=== PATIENT | male | born 1945 | race Caucasian/White ===

== ENCOUNTER 2019-12-24 08:46 | Emergency (ER) | payer OTHER ==
[2019-12-24 09:26] LABS: Absolute Lymphocytes (CBC) 2.1 K/uL (0.7-4.9); Basophils % 0.5 % (0-1.3); Hematocrit 46.4 % (39.6-49.0); Lymphocytes % 28.5 % (15.3-44.8); RBC Red Blood Cell Count 4.87 M/uL (4.33-5.43)
[2019-12-24 09:28] LABS: Protime INR 0.93
[2019-12-24 09:43] LABS: Albumin 3.4 g/dL (3.4-5.0); Bilirubin Total 0.5 mg/dL (0.2-1.0); Potassium 4.5 mmol/L (3.5-5.1); Protein, Total 6.9 g/dL (6.4-8.2)
[2019-12-24 10:15] LABS: Magnesium 1.8 mg/dL (1.8-2.4); Troponin (Emerg Dept Use Only) 0.03 ng/mL (0.0-0.045)
--- NOTE | 2019-12-24 10:15 | RAD REPORT ---
EXAM DESCRIPTION: Esperanza Single View12/24/2019 9:59 am CLINICAL HISTORY: Chest pain COMPARISON: none FINDINGS: The lungs appear clear of acute infiltrate. The heart is borderline enlarged IMPRESSION: No acute abnormalities displayed
[2019-12-24 10:59] VITALS: TEMP 98.9
[2019-12-24 11:01] VITALS: O2SAT 95
[2019-12-24 11:02] VITALS: BP 139/72
--- NOTE | 2019-12-25 07:09 | EKG ---
Test Date: 2019-12-24 Test Time: 09:48:30 Adult Family Home Program Manager: JULIETA MEASUREMENT RESULTS: Intervals: Rate: 66 MO: 222 QRSD: 90 QT: 392 QTc: 410 [place]: P: 30 MO: 222 QRS: 1 T: 32 INTERPRETIVE STATEMENTS: Sinus rhythm with 1st degree AV block with premature atrial complexes Inferior infarct, age undetermined Possible Anterior infarct, age undetermined Abnormal ECG Compared to ECG 08/07/1999 10:02:00 Atrial premature complex(es) now present First degree AV block now present Myocardial infarct finding now present Electronically Signed On 12-25-19 07:08:10 CDT by Filipe Grubbs
--- NOTE | 2019-12-31 12:05 | EDPHYS ---
Physician Documentation [facility] Name: Walt Alexis Age: 74 yrs Sex: Male : 1945 Arrival Date: 12/24/2019 Time: 08:50 Bed 5 Private MD: ED Physician Bharat Olea HPI: 12/23 09:10 This 74 yrs old Male presents to ER via Ambulatory with complaints of pm1 Bleeding Gums. 09:10 The patient presents with bleeding. The problem is located in the gums. Onset: The pm1 symptoms/episode began/occurred this morning. Duration: The symptoms now resolved. Modifying factors: The symptoms are alleviated by nothing, the symptoms are aggravated by brushing teeth. Associated signs and symptoms: Pertinent negatives: dysphagia, fever, inability to eat, vomiting. Severity of symptoms: in the emergency department the symptoms have resolved. The patient has not experienced similar symptoms in the past. The patient has not recently seen a physician, has an appointment scheduled, with museum preparator in a few days. Patient with bleeding from his gums after brushing teeth this AM. No other complaints or signs of bleeding. Historical: - Allergies: 09:09 Plavix; jl7 09:09 Sulfa (Sulfonamide Antibiotics); jl7 - Home Meds: 09:09 aspirin 81 mg Oral TbEC [Active]; carvedilol oral oral [Active]; Levemir 100 unit/mL jl7 subcutaneous soln [Active]; Metformin Oral [Active]; Novolog 100 unit/mL Sub-Q soln [Active]; rosuvastatin oral oral [Active]; Isosorbide Mononitrate Oral [Active]; - PMHx: 09:09 Hypertension; Hyperlipidemia; Diabetes - IDDM; jl7 - PSHx: 09:09 Heart stents; jl7 - Immunization history:: Adult Immunizations up to date. - Social history:: Smoking status: Patient denies any tobacco usage or history of. ROS: 09:10 Constitutional: Negative for fever, chills, and weight loss. pm1 09:10 Neck: Negative for injury, pain, and swelling, Cardiovascular: Negative for chest pain, palpitations, and edema, Respiratory: Negative for shortness of breath, cough, wheezing, and pleuritic chest pain, Abdomen/GI: Negative for abdominal pain, nausea, vomiting, diarrhea, and constipation, Back: Negative for injury and pain, MS/Extremity: Negative for injury and deformity, Skin: Negative for injury, rash, and discoloration, Neuro: Negative for headache, weakness, numbness, tingling, and seizure. 09:10 ENT: Positive for bleeding from gums, Negative for ear pain, Gum pain sinus pain, sore throat, dental pain, difficulty swallowing, difficulty handling secretions. Exam: 09:10 Constitutional: This is a well developed, well nourished patient who is awake, alert, pm1 and in no acute distress. Head/Face: Normocephalic, atraumatic. 09:10 Chest/axilla: Normal chest wall appearance and motion. Nontender with no deformity. No lesions are appreciated. 09:10 Abdomen/GI: Soft, non-tender. No guarding or rebound. No evidence of tenderness throughout. Back: No spinal tenderness. No costovertebral tenderness. Full range of motion. Skin: Warm, dry with normal turgor. Normal color with no rashes, no lesions, and no evidence of cellulitis. MS/ Extremity: Pulses equal, no cyanosis. Neurovascular intact. Full, normal range of motion. 09:10 ENT: External ear(s): are unremarkable, Ear canal(s): are normal, TM's: are normal, Nose: is normal, Mouth: is normal, Lips: no bleeding present, Oral mucosa: normal, Gums: normal with healthy appearance. 09:10 Cardiovascular: Exam negative for acute changes, Rate: normal, Rhythm: regular, Pulses: no pulse deficits are appreciated. 09:10 Respiratory: Exam negative for acute changes, respiratory distress, shortness of breath. 09:10 Neuro: Exam negative for acute changes, Orientation: is normal, Mentation: is normal, Motor: is normal, Sensation: is normal, no obvious gross deficits. Vital Signs: 09:04 BP 134 / 75; Pulse 72; Resp 16 S; Temp 98.9(O); Pulse Ox 97% on R/A; Pain 0/10; jl7 09:59 BP 142 / 70; Pulse 67; Resp 16 S; Pulse Ox 95% on R/A; ca1 10:43 BP 139 / 72; Pulse 67; Resp 16 S; Pulse Ox 95% on R/A; ca1 MDM: 08:54 Patient medically screened. 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 I pm1 evaluated the patient and he reported twitching chest pain that feels like his tens unit on sternum. Lasted for 1 sec. Patient with history of two AR and 1 stent. Due to medical history and chest pain complaint I will add cardiac evaluation. 10:20 Refusal of service: The patient/guardian displays adequate decision making capability pm1 and despite a detailed discussion of alternatives, benefits, risks, and consequences refuses: Discussed labs with patient. Explained that I would like to get a repeat troponin, but patient would like to go home now his his main concern was his gum bleeding. 10:24 Data reviewed: vital signs. Data interpreted: Pulse oximetry: on room air is 95 %. pm1 Interpretation: normal. 10:24 Counseling: I had a detailed discussion with the patient and/or guardian regarding: the pm1 historical points, exam findings, and any diagnostic results supporting the discharge/admit diagnosis, lab results, radiology results, the need for outpatient follow up, to return to the emergency department if symptoms worsen or persist or if there are any questions or concerns that arise at home. 12/23 09:10 Order name: CBC with Diff; Complete Time: 09:40 pm1 12/23 09:10 Order name: CMP; Complete Time: 10:05 pm12/23 09:10 Order name: PT-INR; Complete Time: 09:41 pm12/23 09:42 Order name: Magnesium; Complete Time: 10:17 pm12/23 09:42 Order name: NT PRO-BNP; Complete Time: 10:17 pm12/23 09:42 Order name: Troponin (emerg Dept Use Only); Complete Time: 10:17 pm12/23 09:42 Order name: XRAY Chest (1 view); Complete Time: 10:17 pm12/23 09:42 Order name: EKG; Complete Time: 09:44 pm12/23 09:42 Order name: Cardiac monitoring; Complete Time: 09:52 pm12/23 09:42 Order name: EKG - Nurse/Tech; Complete Time: 09:52 pm12/23 09:42 Order name: Labs collected and sent; Complete Time: 09:56 pm12/23 09:42 Order name: O2 Per Protocol; Complete Time: 10:01 pm1 12/23 09:42 Order name: O2 Sat Monitoring; Complete Time: 10:01 pm1 Administered Medications: No medications were administered Disposition: 18:08 Co-signature as Attending Physician, Bharat Olea MD. rn Disposition: 12/24/19 10:26 Discharged to Home. Impression: Bleeding of gums. - Condition is Stable. - Discharge Instructions: Gingivitis. - Medication Reconciliation Form, Thank You Letter, Antibiotic Education, Prescription Opioid Use form. - Follow up: Emergency Department; When: As needed; Reason: Worsening of condition. Follow up: Private Physician; When: 2 - 3 days; Reason: Recheck today's complaints, Continuance of care, Re-evaluation by your physician. - Problem is new. - Symptoms have improved. Signatures: Dispatcher [employer] EDBharat Bob MD MD rn Marinas, Patrick, BACK WEDGER BACK WEDGER pm1 Concepción Sims RN RN jl7 Olive Henry RN RN ca1 Corrections: (The following items were deleted from the chart) 10:43 09:42 IV Saline Lock ordered. pm1 ca1 10:44 10:26 12/24/2019 10:26 Discharged to Home. Impression: Bleeding of gums. Condition is ca1 Stable. Forms are Medication Reconciliation Form, Thank You Letter, Antibiotic Education, Prescription Opioid Use. Follow up: Emergency Department; When: As needed; Reason: Worsening of condition. Follow up: Private Physician; When: 2 - 3 days; Reason: Recheck today's complaints, Continuance of care, Re-evaluation by your physician. Problem is new. Symptoms have improved. pm1
--- NOTE | 2019-12-31 12:05 | ER ---
Nurse's Notes [facility] Name: Walt Alexis Age: 74 yrs Sex: Male : 1945 Arrival Date: 12/24/2019 Time: 08:50 Bed 5 Private MD: Diagnosis: Bleeding of gums Presentation: 12/23 09:04 Chief complaint: Patient states: "Woke up this morning, felt great. Brushed my teeth jl7 and when I spit it was solid red." Pt denies pain, reports having nasal congestion and using Nasacort. No bleeding noted during triage. Coronavirus screen: Proceed with normal triage. Patient denies a cough. Patient denies shortness of breath or difficulty breathing. Patient denies measured and/or subjective temperature greater than 100.4F prior to today's visit. Patient denies travel on a cruise ship or to a country the [facility] currently lists as an affected area. Patient denies contact with known and/or suspected case of COVID-19. Ebola Screen: No symptoms or risks identified at this time. Initial Sepsis Screen: Does the patient meet any 2 criteria? No. Patient's initial sepsis screen is negative. Does the patient have a suspected source of infection? No. Patient's initial sepsis screen is negative. Risk Assessment: Do you want to hurt yourself or someone else? Patient reports no desire to harm self or others. Onset of symptoms was December 24, 2019 at 07:15. Care prior to arrival: None. 09:04 Method Of Arrival: Ambulatory [facility] 09:04 Acuity: MARYELLEN 4 jl7 Triage Assessment: 09:09 General: Appears in no apparent distress. uncomfortable, Behavior is cooperative, jl7 anxious. Pain: Denies pain. EENT: Nares are clear bilaterally Oral mucosa is moist. Throat is clear. Neuro: Level of Consciousness is awake, alert, obeys commands, Oriented to person, place, time, situation. Cardiovascular: Patient's skin is warm and dry. Respiratory: Airway is patent Respiratory effort is even, unlabored, Respiratory pattern is regular, symmetrical. Derm: Skin is pink, warm \\T\\ dry. Historical: - Allergies: 09:09 Plavix; jl7 09:09 Sulfa (Sulfonamide Antibiotics); jl7 - Home Meds: 09:09 aspirin 81 mg Oral TbEC [Active]; carvedilol oral oral [Active]; Levemir 100 unit/mL jl7 subcutaneous soln [Active]; Metformin Oral [Active]; Novolog 100 unit/mL Sub-Q soln [Active]; rosuvastatin oral oral [Active]; Isosorbide Mononitrate Oral [Active]; - PMHx: 09:09 Hypertension; Hyperlipidemia; Diabetes - IDDM; jl7 - PSHx: 09:09 Heart stents; jl7 - Immunization history:: Adult Immunizations up to date. - Social history:: Smoking status: Patient denies any tobacco usage or history of. Screenin:11 Abuse screen: Denies threats or abuse. Denies injuries from another. Nutritional jl7 screening: No deficits noted. Tuberculosis screening: No symptoms or risk factors identified. Fall Risk None identified. Assessment: :11 General: See triage assessment. jl7 10:43 Reassessment: Patient appears in no apparent distress at this time. Patient is alert, ca1 oriented x 3, equal unlabored respirations, skin warm/dry/pink. Vital Signs: 09:04 BP 134 / 75; Pulse 72; Resp 16 S; Temp 98.9(O); Pulse Ox 97% on R/A; Pain 0/10; jl7 09:59 BP 142 / 70; Pulse 67; Resp 16 S; Pulse Ox 95% on R/A; ca1 10:43 BP 139 / 72; Pulse 67; Resp 16 S; Pulse Ox 95% on R/A; ca1 ED Course: 08:50 Patient arrived in ED. as 08:53 Beka Worley NP is PHCP. pm1 08:53 Bharat Olea MD is Attending Physician. pm1 08:54 Concepción Sims RN is Primary Nurse. jl7 09:06 Triage completed. jl7 09:09 Arm band placed on right wrist. jl7 09:11 Patient has correct armband on for positive identification. Bed in low position. Call [facility] light in reach. Side rails up X 1. Pulse ox on. NIBP on. 09:19 Initial lab(s) drawn, by me, sent to lab. 7 09:55 Magnesium Sent. 5 09:55 NT PRO-BNP Sent. [facility] 09:56 Troponin (emerg Dept Use Only) Sent. [facility] 09:57 campus monitor on. [facility] 09:57 EKG done, by ED staff, reviewed by Beka Worley EARTH SCIENCE TECHNICIAN. [facility] 10:01 XRAY Chest (1 view) In Process Unspecified. EDMS 10:44 No provider procedures requiring assistance completed. Patient did not have IV access ca1 during this emergency room visit. Administered Medications: No medications were administered Outcome: 10: Discharge ordered by MD. pm1 10:44 Discharged to home ambulatory. ca1 10:44 Condition: stable 10:44 Discharge instructions given to patient, Instructed on discharge instructions, follow up and referral plans. Demonstrated understanding of instructions, follow-up care. 10:44 Patient left the ED. ca1 Signatures: Dispatcher [employer] EDVT Keysha Cordova Patrick, ERVIN EARTH SCIENCE TECHNICIAN pm1 Demetria Cordova [facility] Concepción Sims, RN RN jl7 Olive Henry RN RN ca1
== END 2019-12-24 10:44 | disposition home or self-care (01) ==
LOC: ER 08:46
DX: K06.8 Other specified disorders of gingiva and edentulous alveolar ridge (principal); I10 Essential (primary) hypertension; E11.9 Type 2 diabetes mellitus without complications; E78.5 Hyperlipidemia, unspecified; Z79.4 Long term (current) use of insulin; Z79.82 Long term (current) use of aspirin; Z88.2 Allergy status to sulfonamides; Z88.8 Allergy status to other drugs, medicaments and biological substances; Z95.818 Presence of other cardiac implants and grafts
CPT/HCPCS: 36415; 71045; 80053; 83735; 83880; 84484; 85025; 85610; 93005; 99284